=== PATIENT | male | born 1955 | race Caucasian/White ===

== ENCOUNTER 2023-03-29 07:59 | Observation (INO) ==
--- NOTE | 2023-02-27 10:47 | PAT Medication Instructions ---
Medication Instructions Date of Service February 27, 2023 Home Medications Medical Marijuana 1 dose PO DIRECTED PRN Pain linaclotide 145 mcg capsule (Linzess) 145 mcg PO QAM losartan 50 mg tablet 50 mg PO QAM multivitamin 1 tab PO DAILY naproxen sodium 220 mg tablet (Aleve) 220 mg PO BID PRN Pain polyethylene glycol 3350 17 gram/dose oral powder (Miralax) 17 g PO DAILY psyllium seed (sugar) oral powder (Metamucil (sugar) oral powder) 1 tbsp PO DAILY tamsulosin 0.4 mg capsule 0.4 mg PO HS ASK your surgeon for instructions naproxen sodium 220 mg tablet (Aleve) 220 mg PO BID PRN Pain DO NOT take the morning of surgery Medical Marijuana 1 dose PO DIRECTED PRN Pain linaclotide 145 mcg capsule (Linzess) 145 mcg PO QAM losartan 50 mg tablet 50 mg PO QAM multivitamin 1 tab PO DAILY polyethylene glycol 3350 17 gram/dose oral powder (Miralax) 17 g PO DAILY psyllium seed (sugar) oral powder (Metamucil (sugar) oral powder) 1 tbsp PO [place] Y Take evening before surgery Medical Marijuana 1 dose PO DIRECTED PRN Pain (if needed) polyethylene glycol 3350 17 gram/dose oral powder (Miralax) 17 g PO DAILY psyllium seed (sugar) oral powder (Metamucil (sugar) oral powder) 1 tbsp PO DAILY tamsulosin 0.4 mg capsule 0.4 mg PO HS OTHERWISE NOTHING TO EAT OR DRINK AFTER MIDNIGHT: Other Notes If you have any questions please call us at [phone] or [phone] or [phone] or [phone]
--- NOTE | 2023-03-02 12:05 | Anesthesiology Consultation ---
Date of Service March 02, 2023 Assessment & Plan (1) Encounter for pre-operative examination: - Case discussed in detail with Dr. Kruse who advised patient is acceptable to proceed with surgery without further evaluation or testing and can proceed as outpatient joint if requested by patient/surgeon in future. - Outpatient joint assessment: Patient is currently scheduled for inpatient pathway. If re-evaluated and patient/surgeon requests outpatient pathway, patient is acceptable candidate for outpatient joint program from anesthesia standpoint pending surgeon's office assessment of pt motivation/support/completion of same day joint program preop requirements. Chart Review Chart Review: Acceptable Risk for Surgery and Patient seen in Pre Admission Testing Teaching & Discussion Pre-Anesthesia Teaching/Discussion Notes: Instructed NPO after midnight before surgery, except medications with 15 cc of water. Medication instructions provided according to the PAT guidelines. History Surgery Operation Date: 03/29/23 10:05 Proposed Procedures p Left Total Knee Arthroplasty - Renny uAgustine MD Height/Weight Height: 6 ft Weight: 87.8 kg Allergies Allergy/AdvReac Type Severity Reaction Status Date / Time azithromycin Allergy Intermediate Rash Verified 02/24/23 11:52 [From Zithromax Z-Matheus] Medications Home Medications Medication Instructions Recorded Confirmed Last Taken Medical Marijuana 1 dose PO DIRECTED PRN Pain 02/24/23 02/24/23 Unknown linaclotide 145 mcg capsule 145 mcg PO QAM 02/24/23 02/24/23 Unknown (Linzess) losartan 50 mg tablet 50 mg PO QAM 02/24/23 02/24/23 Unknown multivitamin 1 tab PO DAILY 02/24/23 02/24/23 Unknown naproxen sodium 220 mg tablet 220 mg PO BID PRN Pain 02/24/23 02/24/23 Unknown (Aleve) polyethylene glycol 3350 17 17 g PO DAILY 02/24/23 02/24/23 Unknown gram/dose oral powder (Miralax) psyllium seed (sugar) oral powder 1 tbsp PO DAILY 02/24/23 02/24/23 Unknown (Metamucil (sugar) oral powder) tamsulosin 0.4 mg capsule 0.4 mg PO HS 02/24/23 02/24/23 Unknown Past Medical History Medical History (Updated 03/02/23 @ 12:04 by Kalpana Almonte PA-C) BPH (benign prostatic hyperplasia) Constipation chronic Hypertension controlled, stable per pt Patient denies h/o stroke, seizures, heart attack, heart failure, DM, blood clots/DVTs or blood transfusions. Exercise / Class Metabolic Activity II 4-5 Yardwork/Stairs/Walk up hill (shortness of breath with 1 FOS ongoing x several yrs; denies change or worsening; denies chest discomfort) Past Surgical History Surgical History H/O melanoma excision x several History of ankle surgery right History of appendectomy History of arthroscopy right ankle History of carpal tunnel release bilat History of cholecystectomy History of colonoscopy History of esophagogastroduodenoscopy (EGD) History of lumbar fusion History of tonsillectomy History of tooth extraction Hx of laparoscopy Past Anesthesia History No Hx of Anesthesia Complications and No Family Hx of Anesthesia Complications History of PONV No Hx of PONV and No Hx of Motion Sickness Social History Smoking Status: Former smoker Do You Dip or Chew Tobacco: No (hx 20 yrs ago) Smoking End Date: 50 yrs ago Hx Alcohol Use: No Hx Substance Use: Yes substance use type: marijuana Substance Use Type Other:: medical card > uses gummy prn-advised Review of Systems Chronic cough/clearing throat ongoing x 1 year, cough is nonproductive. Denies change or worsening. Patient denies chest pain, snoring, witnessed apneas, reflux, fever, chills, wheezing, or palpitations. Physical Exam Vital Signs Vitals BP 128/85 P 69 TEMP 97.3 SP02 100% on RA RESP 18 Physical Patient resting comfortably in chair in no acute distress, alert and oriented, responding appropriately throughout visit Full cervical extension range of motion without pain TMD 3.5 finger breadths Mallampati Score 2 Dentition: intact, denies chipped or loose teeth, caps/crowns, implants or bridges Lungs: normal respiratory effort. Good air movement, clear throughout to auscu ltation, no adventitious breath sounds Cardiac: regular rate and rhythm, no murmurs noted Carotid arteries: negative bruit bilat Lab Results Anesthesia Preop Results Results Anesthesia Widget: WBC 6.21 K/ul (4.8-10.8) 03/02/23 Hgb 13.0 g/dl (14.0-18.0) L 03/02/23 Hct 38.6 % (42.0-52.0) L 03/02/23 Plt 257 K/uL (130-400) 03/02/23 Na 137 mmol/L (136-145) 03/02/23 K 4.6 mmol/L (3.5-5.1) 03/02/23 Cl 107 mmol/L (98-107) 03/02/23 CO2 25 mmol/L (21-32) 03/02/23 BUN 21 mg/dl (6-23) 03/02/23 Creat 1.01 mg/dl (0.6-1.4) 03/02/23 Glucose Level 94 mg/dl (70-99(Fasting)) 03/02/23 PT 11.3 Seconds (9.0-12.0) 03/02/23 PTT 24.2 Seconds (21.0-31.0) 03/02/23 INR 1.0 (0.9-1.1) 03/02/23 HA1c 4.3 % (4.5-5.6) L 03/02/23 Urine Color Yellow 03/02/23 Urine Appearance Clear (Clear) 03/02/23 Urine pH 5.0 (4.5-7.5) 03/02/23 Urine Specific Wall 1.011 (1.000-1.030) 03/02/23 Urine Protein Negative (Negative) 03/02/23 Urine Glucose (UA) Negative (Negative) 03/02/23 Urine Ketones Negative (Negative) 03/02/23 Urine Blood Negative (Negative) 03/02/23 Urine Nitrite Negative (Negative) 03/02/23 Urine Bilirubin Negative (Negative) 03/02/23 Urine Urobilinogen Negative (Negative) 03/02/23 Urine Leukocyte Esterase Negative (Negative) 03/02/23 Blood Type O Positive 03/02/23 Antibody Screen NEGATIVE 03/02/23 Testing Electrocardiogram Date: 12/20/22 NSR, rate 66 bpm Left axis deviation RBBB Chest X-Ray Date: 12/19/22 Unremarkable cardiopulmonary systems Echocardiogram Date: 11/02/21 EF 60-65% All segments contract normally Mild mitral regurgitation Mild pulmonic regurgitation Stress Test Date: 12/06/21 Exercise MPHR 87% METS 10 No significant ischemia detected Fixed perfusion defect likely related to diaphragmatic attenuation in the inferior segment EF 50-55%
--- NOTE | 2023-03-28 09:58 | History & Physical Report ---
Date of Service March 28, 2023 Assessment & Plan (1) Primary osteoarthritis of left knee: Plan: Treatment options discussed with the patient. He has failed conservative measures and would like to proceed with surgery. Risks, benefits and alternatives to surgery including but not limited to infection, DVT, pain, stiffness, need for revision surgery, damage to blood vessels, damage to nerves, PE, , were discussed with the patient and they wish to proceed. Plan on left total knee arthroplasty scheduled for 03/29/23 at [facility] with Dr. Augustine. Plan on aspirin 81mg twice daily for 1 mo post op for DVT prophylaxis. Plan on outpatient physical therapy. All questions answered. Patient will follow up post op. History of Present Illness Chief Complaint: Left knee pain Primary Care Provider: Ricky Calderón MD 68yo male with PMHx significant for HTN, hx of melanoma, BPH who presents with ongoing left knee pain. Pain is interfering with his daily activity. He has failed conservative measures and would like to proceed with surgery. Patient denies headaches, sweats, fevers, chills, double vision, blurred vision, cough, sore throat, dysphagia, chest pain, sob, wheezing, n/v/d/c, numbness, tingling, fatigue, urinary symptoms, mood disorders. ROS positive for left knee pain and stiffness. Allergies Allergy/AdvReac Type Severity Reaction Status Date / Time azithromycin Allergy Intermediate Rash Verified 02/24/23 11:52 [From Zithromax Z-Matheus] Home Medications Medication Instructions Recorded Confirmed Type Medical Marijuana 1 dose PO DIRECTED PRN Pain 02/24/23 02/24/23 History linaclotide 145 mcg capsule 145 mcg PO QAM 02/24/23 02/24/23 History (Linzess) losartan 50 mg tablet 50 mg PO QAM 02/24/23 02/24/23 History multivitamin 1 tab PO DAILY 02/24/23 02/24/23 History naproxen sodium 220 mg tablet 220 mg PO BID PRN Pain 02/24/23 02/24/23 History (Aleve) polyethylene glycol 3350 17 17 g PO DAILY 02/24/23 02/24/23 History gram/dose oral powder (Miralax) psyllium seed (sugar) oral powder 1 tbsp PO DAILY 02/24/23 02/24/23 History (Metamucil (sugar) oral powder) tamsulosin 0.4 mg capsule 0.4 mg PO HS 02/24/23 02/24/23 History Past Med/Surg History Medical History (Updated 03/28/23 @ 09:55 by Chapito Castillo PA-C) BPH (benign prostatic hyperplasia) Constipation chronic Hypertension controlled, stable per pt Surgical History H/O melanoma excision x several History of ankle surgery right History of appendectomy History of arthroscopy right ankle History of carpal tunnel release bilat History of cholecystectomy History of colonoscopy History of esophagogastroduodenoscopy (EGD) History of lumbar fusion History of tonsillectomy History of tooth extraction Hx of laparoscopy Social History Smoking Status: Former smoker Smoking End Date: 50 yrs ago; Second Hand Exposure: No; Do You Dip or Chew Tobacco: No (hx 20 yrs ago); Tobacco Cessation Education Requested by Patient: No Hx Alcohol Use: No Hx Substance Use: Yes Substance Use Type Other:: medical card > uses gummy prn- advised Preferred Language: Dominican Communication Ability: Effective Electromechanisms Design Drafter Required: No Beliefs That Will Affect Care: None Current Living Situation: Spouse Other Information That Helps Us Care for You: No Feels Safe at Home: Yes Safety Concerns: Feels Safe At This Time Assistive Devices: None Review of Systems All systems reviewed & are unremarkable except as noted in HPI & below Physical Exam Constitutional: well developed and well nourished; no acute distress Eyes: PERRL, conjunctivae normal, anicteric sclerae ENMT: external ear and nose normal, oropharynx normal Neck: trachea midline, no thyromegaly Respiratory: normal respiratory effort, lungs clear to auscultation Cardiovascular: RRR, no murmur, no edema Musculoskeletal: Left knee: Varus alignment. Tenderness medial joint line. Mild effusion. Mild crepitation. Guarded Yfn's. Stable to valgus and varus stress. ROM 0-135 degrees Skin: no rashes, warm and dry Neurologic: patellar DTR's 2+ bilat, sensation intact Psychiatric: A+Ox3, euthymic affect Results & Data Diagnostic Findings X-rays of the left knee demonstrate that he has a varus knee. He has subluxation of the femur medially on the tibia. He has some medial bone loss in the medial compartment. There are subchondral cystic changes and subchondral sclerosis. He has some lateral patellar tilt, with patellofemoral osteophytes, with patellofemoral OA as well. Four-view x-rays left knee.
[~2023-03-29 07:59] MED LIST: ACETAMINOPHEN 500 MG TAB PO SCH; BUPIVACAINE 0.5 % 5 MG/1 ML PF 10ML VIAL ONE; CeleBREX 200 MG CAP PO SCH; FAMOTIDINE 20 MG TAB PO SCH; GABAPENTIN 300 MG CAP PO SCH; LR 500ML BOLUS, THEN 15ML/HR IV SCH; LR 60ML/HR IV SCH; METOCLOPRAMIDE HCL 10 MG TABLET PO SCH; ROPIVACAINE 0.5% 5 MG/ML 30 ML VIAL ONE; ROPIVACAINE 0.5% HCL/PF 150 MG, BUPIVACAINE 0.75% MPF 20 ML, EPINEPHrine 30MG/30ML (OR ... INSTIL SCH; TRANEXAMIC ACID 1,000 MG **IV Intra-op IV SCH; TRANEXAMIC ACID 1,000 MG **IV Pre-op IV SCH; ceFAZolin 2000MG 2,000 MG/15 ML SYR IV SCH; dexAMETHasone 4 MG TAB PO SCH
[2023-03-29] MEDS ORDERED: DEXAMETHASONE SOD INJ 4 MG/ML VIAL ONE (08:10)
[2023-03-29] MEDS ORDERED: fentaNYL citrate PF 100 MCG/2 ML VIAL ONE ×2 (08:10→11:47)
[2023-03-29] MEDS ORDERED: PROPOFOL IV EMULSION 10 MG/ML 20 ML VIAL IV ONE (08:10)
[2023-03-29] MEDS ORDERED: ONDANSETRON INJ 2 MG/ML 2 ML VIAL ONE (08:10)
[2023-03-29] MEDS ORDERED: LIDOCAINE 2% 2 ML VIAL/AMP(20MG/ML) INFIL ONE (08:10)
[2023-03-29] MEDS ORDERED: MIDAZOLAM HCL 1 MG/ML 2ML VIAL ONE (08:10)
[2023-03-29] MEDS ORDERED: ATROPINE SULFATE 0.1 MG/ML 10ML SYR IV PRN (09:25)
[2023-03-29] MEDS ORDERED: HYDROmorphone INJ 2 MG/ML SYR/VIAL IV PRN (09:25)
[2023-03-29] MEDS ORDERED: ONDANSETRON INJ 2 MG/ML 2 ML VIAL IV PRN ×2 (09:25→15:03)
[2023-03-29] MEDS ORDERED: ePHEDrine sulfate 50 MG/ML AMP IV PRN (09:25)
--- NOTE | 2023-03-29 09:57 | History & Physical Bridge Note ---
Date of Service March 29, 2023 History & Physical Bridge Note I have examined the patient, reviewed the History & Physical and in the interval since the performance of the History & Physical I have noted the following changes of clinical significance: no changes noted
[2023-03-29] MEDS ORDERED: ORTHO JOINT ANESTHETIC ONE (10:23)
[2023-03-29] MEDS ORDERED: HYDROmorphone INJ 2 MG/ML SYR/VIAL ONE (12:49)
--- NOTE | 2023-03-29 13:28 | Post Operative Brief Note ---
Immediate Post Op Note v1 Date of Surgery March 29, 2023 Pre & Post Diagnosis Operation Date: 03/29/23 10:05 Pre-Op Diagnosis: Left Knee Osteoarthritis Post-Op Diagnosis: Left Knee Osteoarthritis I identified the patient and participated in the time-out.: Yes Procedure Operation Date: 03/29/23 10:05 Actual Procedures p Left Total Knee Arthroplasty(Left), giovani and Acticoat superficial wound VAC application- Renny Augustine MD Surgeon Renny Augustine MD Travel Assistant Chapito SALEEM Estimated Blood Loss 5 Findings Consistent with Post-Op Diagnosis Specimens Bone cuts Drains Hemovac Drain (left knee) Anesthesia Type General Regional Complications none Disposition Disposition: Recovery Room Overlapping Procedure I was immediately available: during the entire case.
--- NOTE | 2023-03-29 13:39 | Operative Report ---
Post Operative Report Pre & Post Diagnosis Operation Date: 03/29/23 10:05 Pre-Op Diagnosis: Left Knee Osteoarthritis Post-Op Diagnosis: Left Knee Osteoarthritis I identified the patient and participated in the time-out.: Yes Procedure Operation Date: 03/29/23 10:05 Actual Procedures p Left Total Knee Arthroplasty(Left), giovani and Acticoat superficial wound VAC application- Renny Augustine MD Surgeon Renny Augustine MD Court Advocate Chapito SALEEM Estimated Blood Loss 5 Findings Consistent with Post-Op Diagnosis Specimens Bone cuts Drains 2 Hemovac Anesthesia Type General Regional Complications none Disposition Disposition: Recovery Room Indications 68-year-old male with chronic left knee pain failed conservative management. X- rays demonstrate osteoarthritis of the knee tricompartmental disease subluxation the femur medially on the tibia [id number] medial compartment varus knee. Description of Procedure The patient was taken to the operating room and anesthetized under spinal general and regional block anesthetic. Patient was placed supine on the the operating table. A pneumatic tourniquet was placed about the left upper thigh. The knee exam demonstrated mild pseudolaxity varus knee full range of motion and a large effusion. The involved leg was elevated exsanguinated with Esmarch bandage and the pneumatic tourniquet was raised to 300 millimeters mercury. A longitudinal incision was made across the anterior knee. Skin flaps were elevated. An incision was made into the medial retinaculum and extended up into the mid third of the quadriceps tendon and extended down to the tibial tubercle. Intra-articular findings demonstrated tricompartmental osteoarthritis with varus knee with [id number]-wrap medial compartment with anteromedial [id number]-gz-evas grade 4 changes with a chronic medial meniscus tear large radial tear. There were patellofemoral osteophytes and patellofemoral malalignment with lateral tr acking patella. There was chondromalacia of the femoral condyle lateral femoral condyle grade 3. There was marked inflamed hypertrophic synovitis in the suprapatellar pouch extending into the superior aspect of the gutters medially and laterally. I first performed and electrocautery synovectomy removing the chronically appearing inflamed synovial tissue in the suprapatellar pouch and in the medial and lateral gutters. The knee was further exposed by excising cruciate ligaments and menisci. The infrapatellar fat pad was resected. The fat pad over the anterior femur at the upper aspect of the articular surface was resected for placement of the component in that area. A subperiosteal peel lateral release was performed around the patella. The [employer] journey 2.0 posterior stabilized total knee arthroplasty system was utilized for the procedure. The custom femoral cutting guide was pinned in position. The distal femoral cut was made. It was noted the bone quality was extremely hard. The size 7, 5 in 1 cutting block was placed. The anterior posterior and chamfer cuts were made. The knee was extended and a free hand cut technique was performed to the patella. The patella width was measured and the width was reproduced using a 38 symmetrical patella component. Cut was made with an oscillating saw and the bone was equally as hard on the patella. 3 drill holes are made for the patella component pegs. The tibia was then subluxed. The external tibial alignment guide adjusted for posterior slope and was aligned with the long axis of the tibia and was pinned in position and the proximal tibial cut was made with the oscillating saw. The cut revealed large central intraosseous ganglion cysts in the tibia which were curetted out. Flexion and extension gaps were balanced. A minor medial posterior medial release was required. The size 7 tibial trial was externally rotated in line with the tibial tubercle and pinned in position. The punch for the stem was used. The femoral trial was inserted and centered the notch cutting devices were used and the collet was placed. Tibial trials were used for the insert. The size 11 trial gave balanced ligaments through full range of motion. Patella tracking was assessed with range of motion. The patella tracked with continued lateral patellar tilt and slight lift off so a lateral release was performed and the synovium intact and this corrected the patella tracking to central.. The trials were removed. The Orthomix anesthetic cocktail was injected per protocol. The cut bone surfaces and soft tissue were copiously irrigated with pulsatile lavage saline solution. The final components were cemented with Refobacin cement. The final components were Trejo [employer] Nephew journey 2.0 size 7 left posterior stabilized femoral component, size 7 left tibial component, 11 mm left posterior stabilized tibial polyethylene component 38 mm symmetrical patella polyethylene component. After the cement cured, the Betadine soak was used for 3 minutes. The knee was then copiously irrigated with pulsatile lavage saline solution. 2 drains were brought out laterally connected to Hemovac. The quadriceps tendon and medial retinaculum were closed with interrupted [id number] #1 Vicryl sutures. The knee was taken through full range of motion and repair was secure. Knee range of motion was 0 through 130 degrees. The subcutaneous tissues were closed with 2-0 Vicryl sutures. The skin was closed with afia. A giovani and Acticoat superficial wound VAC was applied. The tourniquet was let down and the patient had good capillary refill to the extremity. The patient tolerated the procedure well. My physician program assistant Arya SALEEM participated as molding line assistant and was integral part in all aspects of the procedure including prepping, draping, leg positioning, soft tissue retraction, instrument management and assisted in the closure , giovani and Acticoat superficial wound VAC application and will participate in postoperative care the patient. I attest to the content of the Intraoperative Record and any orders documented therein. Any exceptions are noted below.
--- NOTE | 2023-03-29 14:48 | Anesthesiology Progress Note ---
Date of Service March 29, 2023 Anesthesia Post Procedure Vital Signs Vital Signs: Temp Pulse Pulse Resp BP Pulse Ox O2 Del Method 03/29/23 13:30 87 12 116/63 97 Nasal Cannula 03/29/23 14:30 87 12 116/63 97 Nasal Cannula 03/29/23 14:20 92 H 12 122/66 97 Nasal Cannula 03/29/23 14:10 36.5 C 80 15 107/63 93 Nasal Cannula 03/29/23 14:00 81 12 103/60 95 Oxymask 03/29/23 13:50 80 13 98/61 L 97 Oxymask 03/29/23 13:40 74 12 90/48 L 97 Oxymask 03/29/23 13:33 36.3 C L 79 16 92/51 L 97 Oxymask 03/29/23 10:20 56 L 16 103/61 100 Oxymask 03/29/23 10:04 60 16 104/69 100 Oxymask 03/29/23 08:20 36.6 C 63 18 129/78 100 Room Air O2 Flow Rate 03/29/23 13:30 2 03/29/23 14:30 2 03/29/23 14:20 2 03/29/23 14:10 2 03/29/23 14:00 4 03/29/23 13:50 10 03/29/23 13:40 10 03/29/23 13:33 10 03/29/23 10:20 5 03/29/23 10:04 5 03/29/23 08:20 Transfer of Care Handoff Completed per policy Notes Mental Status: alert / awake / arousable Patient Amnestic to Procedure: Yes Nausea / Vomiting: adequately controlled Pain: adequately controlled Airway Patency, RR, SpO2: stable & adequate BP & HR: stable & adequate Hydration State: stable & adequate Anesthetic Complications: no major complications apparent and Pt Satisfied with anesthetic care
[2023-03-29] MEDS ORDERED: MAGNESIUM HYDROXIDE SUSP 30 ML UDC PO PRN (15:03)
[2023-03-29] MEDS ORDERED: bisacodyL 10 MG SUPP PR PRN (15:03)
[2023-03-29] MEDS ORDERED: NALOXONE HCL 0.4 MG/1 ML VIAL/CARP IV PRN (15:03)
[2023-03-29] MEDS ORDERED: SODIUM CHLORIDE 0.9% 1,000 ML IV SCH (15:03)
[2023-03-29] MEDS ORDERED: METOCLOPRAMIDE HCL INJ 5 MG/ML 2 ML VIAL IV PRN (15:03)
--- NOTE | 2023-03-29 15:35 | Hospitalist Consultation ---
Date of Consultation March 29, 2023 Assessment & Plan (1) Status post left knee replacement: VTE/pain management per primary orthopedic team (2) Hypertension: Given earlier BP recommend holding losartan until POD#2 (3) BPH (benign prostatic hyperplasia): Continue tamsulosin 0.4mg HS (4) Constipation: Continue Linzess 125mcg PO daily, give today's dose now Plan Thank you for the consult. We will continue to follow along with you. No discharge medication changes from a medical perspective anticipated at this time. History of Present Illness Reason for Consultation: Postop Management DOS 03/29 Attending Physician: Renny Augustine MD History of Present Illness Josiah Davila is a 68 year old male POD#0 left total knee arthroplasty. Doing well post surgery. No acute concerns or question from the patient. Hypertension controlled well as outpatient and appropriately held his losartan this morning. Allergies Allergy/AdvReac Type Severity Reaction Status Date / Time azithromycin Allergy Intermediate Rash Verified 03/29/23 08:25 [From Zithromax Z-Matheus] Home Medications Medication Instructions Recorded Confirmed Type Medical Marijuana 1 dose PO DIRECTED PRN Pain 02/24/23 03/29/23 History linaclotide 145 mcg capsule 145 mcg PO QAM 02/24/23 03/29/23 History (Linzess) losartan 50 mg tablet 50 mg PO QAM 02/24/23 03/29/23 History multivitamin 1 tab PO DAILY 02/24/23 03/29/23 History naproxen sodium 220 mg tablet 220 mg PO BID PRN Pain 02/24/23 03/29/23 History (Aleve) polyethylene glycol 3350 17 17 g PO DAILY 02/24/23 03/29/23 History gram/dose oral powder (Miralax) psyllium seed (sugar) oral powder 1 tbsp PO DAILY 02/24/23 03/29/23 History (Metamucil (sugar) oral powder) tamsulosin 0.4 mg capsule 0.4 mg PO HS 02/24/23 03/29/23 History Patient History Medical History (Updated 03/29/23 @ 15:32 by Josiah Acharya MD) Constipation chronic Hypertension controlled, stable per pt BPH (benign prostatic hyperplasia) Surgical History (Updated 03/29/23 @ 15:32 by Josiah Acharya MD) History of esophagogastroduodenoscopy (EGD) History of colonoscopy Hx of laparoscopy History of lumbar fusion History of carpal tunnel release bilat History of cholecystectomy History of appendectomy History of arthroscopy right ankle History of ankle surgery right H/O melanoma excision x several History of tooth extraction History of tonsillectomy Social History Smoking Status: Former smoker Smoking End Date: 50 yrs ago; Second Hand Exposure: No; Do You Dip or Chew Tobacco: No (hx 20 yrs ago); Tobacco Cessation Education Requested by Patient: No Hx Alcohol Use: No Hx Substance Use: Yes Substance Use Type Other:: medical card > uses gummy prn- advised Preferred Language: Hong Konger Communication Ability: Effective 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 Beliefs That Will Affect Care: None Current Living Situation: Spouse Other Information That Helps Us Care for You: No Feels Safe at Home: Yes Safety Concerns: Feels Safe At This Time Assistive Devices: None Review of Systems Review of Systems: All systems reviewed & are unremarkable except as noted in HPI & below Physical Exam Constitutional: WD/WN, vitals as above Respiratory: normal respiratory effort, lungs clear to auscultation Cardiovascular: RRR, no murmur, no edema Gastrointestinal (Abdomen): normal bowel sounds, soft, nontender, no hepatosplenomegaly Skin: no rashes, warm and dry Neurologic: moves all extremities (distal to operation site ankle plantar/dorsiflexion intact) and awake; not confused Psychiatric: A+Ox3, euthymic affect Results & Data Results & Data Vital Signs (Past 12 Hours) Vital Signs Temp Pulse Pulse Resp BP Pulse Ox O2 Del Method 03/29/23 13:30 87 12 116/63 97 Nasal Cannula 03/29/23 14:30 87 12 116/63 97 Nasal Cannula 03/29/23 14:20 92 H 12 122/66 97 Nasal Cannula 03/29/23 14:10 36.5 C 80 15 107/63 93 Nasal Cannula 03/29/23 14:00 81 12 103/60 95 Oxymask 03/29/23 13:50 80 13 98/61 L 97 Oxymask 03/29/23 13:40 74 12 90/48 L 97 Oxymask 03/29/23 13:33 36.3 C L 79 16 92/51 L 97 Oxymask 03/29/23 10:20 56 L 16 103/61 100 Oxymask 03/29/23 10:04 60 16 104/69 100 Oxymask 03/29/23 08:20 36.6 C 63 18 129/78 100 Room Air O2 Flow Rate 03/29/23 13:30 2 03/29/23 14:30 2 03/29/23 14:20 2 03/29/23 14:10 2 03/29/23 14:00 4 03/29/23 13:50 10 03/29/23 13:40 10 03/29/23 13:33 10 03/29/23 10:20 5 03/29/23 10:04 5 03/29/23 08:20 PG Care Time/CCT Total # of Minutes Spent Total Time Spent with Patient: Total time spent is greater than 50% in coordination of care (as documented) at patient's floor/unit and/or counseling patient: Coding Level of Care Code 01945 IN/OBS CONSULT LVL 3,45M Diagnoses Status post left knee replacement Z96.652 Hypertension I10 BPH (benign prostatic hyperplasia) N40.0 Constipation K59.00
[2023-03-29] MEDS ORDERED: LINACLOTIDE 145 MCG CAPSULE PO STA (15:44)
[2023-03-29] MEDS: ACETAMINOPHEN 500 MG TAB PO SCH ×2 (15:48→20:02)
[2023-03-29] MEDS: oxyCODONE HCL IR 5 MG TAB (IMMEDIATE RELEASE) PO PRN ×2 (15:51→20:03)
--- NOTE | 2023-03-29 16:26 | XRay Report ---
XR knee LT 1 or 2V routine CLINICAL HISTORY: Postoperative evaluation. COMPARISON: None FINDINGS: Alignment of the total left knee arthroplasty is anatomic. There is no periprosthetic frac ture or unexpected radiopaque foreign body. There are skin afia and surgical drains. IMPRESSION: Expected findings following total left knee arthroplasty. ACT 112: Negative or not required by law. Electronically signed by: Andres Antoine M.D. 03/29/2023 4:24 PM
[2023-03-29] MEDS: ceFAZolin 2000MG 2,000 MG/15 ML SYR IV SCH (20:00)
[2023-03-29] MEDS: TAMSULOSIN HCL 0.4 MG CAP PO SCH (20:02)
[2023-03-29] MEDS: CeleBREX 200 MG CAP PO SCH (20:03)
[2023-03-29] MEDS: ASPIRIN 81 MG ECTAB PO SCH (20:03)
[2023-03-29] MEDS: DOCUSATE SODIUM 100 MG CAP PO SCH (20:03)
[2023-03-30] MEDS: oxyCODONE HCL IR 5 MG TAB (IMMEDIATE RELEASE) PO PRN ×6 (00:16→20:59)
[2023-03-30] MEDS: ceFAZolin 2000MG 2,000 MG/15 ML SYR IV SCH (03:45)
[2023-03-30] MEDS: ACETAMINOPHEN 500 MG TAB PO SCH ×3 (05:05→20:38)
--- NOTE | 2023-03-30 07:42 | Orthopedic Progress Note ---
Date of Service March 30, 2023 Assessment & Plan (1) Status post left knee replacement: Plan: Postop day #1 left total knee arthroplasty -PT/OT -Pain management as written -A.m. labs are pending -Aspirin 81 mg twice daily, SCDs, teds -Discharge planning: Plan on discharge home with outpatient therapy. Patient has had 250 cc of Hemovac output overnight. He may have more than typical bleeding secondary to synovectomy. Continue drain for another day. Likely discharge home tomorrow. Admission and Anticipated Discharge Date Admission Date: March 29, 2023 Subjective Patient is postop day 1 left total knee. He is doing well this morning. Minimal pain. No other complaints. Denies chest pain, shortness of breath, nausea/vomiting/diarrhea, headaches or dizziness. Review of Systems Review of Systems: All systems reviewed & are unremarkable except as noted in Subjective Physical Exam Physical Exam: Left knee: Dressing is clean, intact. Hemovac on suction. Toes are mobile with good dorsiflexion. No calf tenderness. Able to do a straight leg raise. Constitutional: WD/WN, vitals as above Results & Data Vital Signs (Past 12 Hours) Vital Signs Temp Pulse Resp BP Pulse Ox O2 Del Method 03/30/23 04:10 36.6 C 60 18 101/64 98 Room Air 03/29/23 23:29 36.8 C 92 H 18 128/76 96 Room Air 03/29/23 19:42 36.6 C 89 18 145/77 H 97 Room Air Diagnostic Findings XR knee LT 1 or 2V routine CLINICAL HISTORY: Postoperative evaluation. COMPARISON: None FINDINGS: Alignment of the total left knee arthroplasty is anatomic. There is no periprosthetic fracture or unexpected radiopaque foreign body. There are skin afia and surgical drains. IMPRESSION: Expected findings following total left knee arthroplasty.
[2023-03-30 07:58] LABS: Hemoglobin 9.9 g/dl (14.0-18.0); Mean Corpuscular Hemoglobin 27.3 pg (25.0-34.0); Mean Corpuscular Hgb Conc 34.1 g/dL (32.0-36.0); Mean Corpuscular Volume 80.1 fL (80.0-100.0); Mean Platelet Volume 11.1 fL (9.4-12.4); Platelet Count 260 K/uL (130-400); RDW Coefficient of Variation 15.9 % (11.5-14.5); RDW Standard Deviation 46.3 fL (36.4-46.3); Red Blood Count 3.62 M/uL (4.70-6.10); White Blood Count 14.89 K/ul (4.8-10.8)
[2023-03-30] MEDS: MULTIVITAMIN TAB PO SCH (08:10)
[2023-03-30] MEDS: LINACLOTIDE 145 MCG CAPSULE PO SCH (08:11)
[2023-03-30] MEDS: CeleBREX 200 MG CAP PO SCH ×2 (08:11→20:38)
[2023-03-30] MEDS: PSYLLIUM or GUAR GUM FIBER POWDER PACKET PO SCH (08:11)
[2023-03-30] MEDS: ASPIRIN 81 MG ECTAB PO SCH ×2 (08:11→20:39)
[2023-03-30] MEDS: DOCUSATE SODIUM 100 MG CAP PO SCH ×2 (08:11→20:39)
[2023-03-30] MEDS: POLYETHYLENE (MIRALAX) 17 GM PACK PO SCH (08:11)
[2023-03-30 08:25] LABS: BUN Creatinine Ratio 19.8 (10-20); Calcium 8.8 mg/dl (8.6-10.3); Creatinine Clr Calc Pharmacy 75.2 ml/min; Est GFR (African American) 84.3 ml/min; Est GFR (Non-African American) 72.8 ml/min; Potassium 4.7 mmol/L (3.5-5.1)
[2023-03-30] MEDS ORDERED: LOSARTAN POTASSIUM 50 MG TAB PO SCH (09:00)
[2023-03-30] MEDS ORDERED: NON-FORMULARY MEDICATION (Multivitamin Tablet) PO SCH (09:00)
--- NOTE | 2023-03-30 09:05 | Hospitalist Progress Note ---
Date of Service March 30, 2023 Assessment & Plan (1) Status post left knee replacement: Plan: POD# 1 s/p Left Total Knee Arthroplasty(Left), giovani and Acticoat superficial wound VAC application- Renny Augustine MD EBL 5 cc Hemovac output 250cc overnight WBC elevation, suspect likely 2nd to steroids w/ surgery. Afebrile Hgg 13--> 9.9. Acute blood loss anemia from surgery w/ hemovac output (possible more bleeding 2nd to synovectomy per primary) as well as dilutional aspect from IVF. No CP/SOB, lightheaded/dizziness Pain management/bowel regimen per primary service PT/OT consults DVT proph: ASA 81mg BID, SCDs, severo lane Added daily famotidine for GI proph while on celebrex for pain/aspirin for DVT prophylaxis. No increased reflux reported at present. Consider sending at dc Dispo per primary service -- anticipating dc tomorrow pending drain output (2) Hypertension: Plan: Losartan held day of surgery, resuming for POD #2 given lows overnight to prevent hypotension BP 147/84 at present (3) BPH (benign prostatic hyperplasia): Plan: Continue tamsulosin 0.4mg HS (4) Constipation: Plan: Continue Linzess 125mcg PO daily, first dose last evening Per primary care note, patient on lactulose BID, miralax/benefiber on alternating days as well Discussed w/ patient and will add lactulose 20mg BID Has been 2 days since last BM. Monitor Miralax ordered daily by primary as well. good bowel sounds on exam Plan Thank you for allowing hospitalist service to participate in the care of Mr Davila. Hospitalist service will sign off at this time as planned dc tomorrow if hemovac output decreased. Please call with any questions/concerns. Admission and Anticipated Discharge Date Admission Date: March 29, 2023 Supervising Physician Co-Signing Physician Notes The patient was not seen by me. The chart was reviewed. Case discussed with STIVEN Dodge. Agree with assessment and plan Subjective Eval this morning, doing well. Pain increasing slightly since nerve block wearing off. Orthopedics wanting to monitor drainage, patient reports likely wanting to make sure he can do steps at discharge. Issues w/ constipation at baseline, reports linzess most important. Takes lactulose BID and miralax/benefiber if needed alternating. Will add lactulose BID and miralax prn. No fever/chills, chest pain, shortness of breath. Discussed medicine to sign off and ortho will reach out if any issues as patient planning for discharge tomorrow. Questions/concerns addressed at this time. Physical Exam Constitutional: WD/WN, vitals as above HEENT: head atraumatic, normocephalic, trachea midline, mmm Respiratory: normal respiratory effort, lungs clear to auscultation Cardiovascular: RRR, no murmur, no edema Gastrointestinal (Abdomen): normal bowel sounds, soft, nontender, no hepatosplenomegaly Skin: no rashes, warm and dry Neurologic: moves all extremities (distal to operation site ankle plantar/dorsiflexion intact) and awake; not confused L calf slightly tender but compartments soft, pulses palpable hemovac with bloody drainage Psychiatric: A+Ox3, euthymic affect Results & Data Results & Data Vital Signs (Past 12 Hours) Vital Signs Temp Pulse Resp BP Pulse Ox O2 Del Method 03/30/23 08:13 36.5 C 78 18 147/84 H 97 Room Air 03/30/23 04:10 36.6 C 60 18 101/64 98 Room Air 03/29/23 23:29 36.8 C 92 H 18 128/76 96 Room Air Laboratory Results 03/30/23 Range/Units 07:04 WBC 14.89 H (4.8-10.8) K/ul RBC 3.62 L (4.70-6.10) M/uL Hgb 9.9 L (14.0-18.0) g/dl Hct 29.0 L (42.0-52.0) % MCV 80.1 (80.0-100.0) fL MCH 27.3 (25.0-34.0) pg MCHC 34.1 (32.0-36.0) g/dL RDW Std Deviation 46.3 (36.4-46.3) fL RDW Coeff of Daylin 15.9 H (11.5-14.5) % Plt Count 260 (130-400) K/uL MPV 11.1 (9.4-12.4) fL Sodium 138 (136-145) mmol/L Potassium 4.7 (3.5-5.1) mmol/L Chloride 107 (98-107) mmol/L Carbon Dioxide 27 (21-32) mmol/L Anion Gap 4 (3-11) BUN 21 (6-23) mg/dl Creatinine 1.06 (0.6-1.4) mg/dl Est Cr Clr Drug Dosing 75.2 ml/min Est GFR ( Amer) 84.3 ml/min Est GFR (Non-Af Amer) 72.8 ml/min BUN/Creatinine Ratio 19.8 (10-20) Glucose 102 H (70-99(Fasting)) mg/dl Calcium 8.8 (8.6-10.3) mg/dl Diagnostic Findings Knee X-Ray 03/29/23 13:33 XR knee LT 1 or 2V routine CLINICAL HISTORY: Postoperative evaluation. COMPARISON: None FINDINGS: Alignment of the total left knee arthroplasty is anatomic. There is no periprosthetic fracture or unexpected radiopaque foreign body. There are skin afia and surgical drains. IMPRESSION: Expected findings following total left knee arthroplasty. ACT 112: Negative or not required by law. Electronically signed by: Andres Antoine M.D. 03/29/2023 4:24 PM PG Care Time/CCT Total # of Minutes Spent Total Time Spent with Patient: Total time spent is greater than 50% in coordination of care (as documented) at patient's floor/unit and/or counseling patient: Coding Level of Care Code 49008 SUB INP/OBS CARE 2/35MIN Diagnoses Status post left knee replacement Z96.652 Hypertension I10 BPH (benign prostatic hyperplasia) N40.0 Constipation K59.00
[2023-03-30] MEDS: LACTULOSE SYRUP 20 GM/30 ML UDC PO SCH ×2 (11:07→20:38)
[2023-03-30] MEDS: FAMOTIDINE 20 MG TAB PO SCH (11:07)
[2023-03-30] MEDS ORDERED: oxyCODONE HCL IR 5 MG TAB (IMMEDIATE RELEASE) PO STA (13:31)
[2023-03-30] MEDS: HYDROmorphone INJ 0.5 MG/0.5 ML SYR IV PRN ×3 (18:00→22:36)
[2023-03-30] MEDS: TAMSULOSIN HCL 0.4 MG CAP PO SCH (20:38)
[2023-03-31] MEDS: oxyCODONE HCL IR 5 MG TAB (IMMEDIATE RELEASE) PO PRN ×2 (01:17→06:00)
[2023-03-31] MEDS: HYDROmorphone INJ 0.5 MG/0.5 ML SYR IV PRN ×2 (03:29→11:33)
[2023-03-31] MEDS: ACETAMINOPHEN 500 MG TAB PO SCH ×2 (05:57→14:04)
[2023-03-31] MEDS ORDERED: KETOROLAC TROMETHAMINE 15 MG/ML VIAL IV PRN (07:33)
[2023-03-31] MEDS ORDERED: KETOROLAC TROMETHAMINE 15 MG/ML VIAL IV ONE (07:33)
--- NOTE | 2023-03-31 07:37 | Orthopedic Progress Note ---
Date of Service March 31, 2023 Assessment & Plan (1) Status post left knee replacement: Plan: Postop day #2 left total knee arthroplasty -PT/OT -Pain management as written. Add Toradol. -Aspirin 81 mg twice daily, SCDs, teds -Discharge planning: Plan on discharge home with outpatient therapy when pain is better controlled. We will see how he does through the morning. If pain better controlled plan on discharge home this afternoon. Admission and Anticipated Discharge Date Admission Date: March 29, 2023 Subjective Patient is postop day 2. His pain is currently not controlled and is having quite a bit discomfort. No other complaints. Denies chest pain, shortness of breath, nausea/vomiting/diarrhea, headaches or dizziness. Review of Systems Review of Systems: All systems reviewed & are unremarkable except as noted in Subjective Physical Exam Physical Exam: Left knee: Dressing is clean, intact. Hemovac on suction. Toes are mobile with good dorsiflexion. No calf tenderness. Distally neurovascular status and sensation is grossly intact. Results & Data Vital Signs (Past 12 Hours) Vital Signs Temp Pulse Resp BP Pulse Ox O2 Del Method 03/30/23 21:28 36.6 C 64 18 118/77 99 Room Air Laboratory Results Lab Results 03/30/23 Range/Units 07:04 WBC 14.89 H (4.8-10.8) K/ul RBC 3.62 L (4.70-6.10) M/uL Hgb 9.9 L (14.0-18.0) g/dl Hct 29.0 L (42.0-52.0) % MCV 80.1 (80.0-100.0) fL MCH 27.3 (25.0-34.0) pg MCHC 34.1 (32.0-36.0) g/dL RDW Std Deviation 46.3 (36.4-46.3) fL RDW Coeff of Daylin 15.9 H (11.5-14.5) % Plt Count 260 (130-400) K/uL MPV 11.1 (9.4-12.4) fL Sodium 138 (136-145) mmol/L Potassium 4.7 (3.5-5.1) mmol/L Chloride 107 (98-107) mmol/L Carbon Dioxide 27 (21-32) mmol/L Anion Gap 4 (3-11) BUN 21 (6-23) mg/dl Creatinine 1.06 (0.6-1.4) mg/dl Est Cr Clr Drug Dosing 75.2 ml/min Est GFR ( Amer) 84.3 ml/min Est GFR (Non-Af Amer) 72.8 ml/min BUN/Creatinine Ratio 19.8 (10-20) Glucose 102 H (70-99(Fasting)) mg/dl Calcium 8.8 (8.6-10.3) mg/dl
[2023-03-31] MEDS ORDERED: LOSARTAN POTASSIUM 50 MG TAB PO SCH (09:00)
[2023-03-31] MEDS ORDERED: HYDROmorphone HCL 2 MG TAB PO PRN (09:01)
[2023-03-31 09:21] LABS: Hematocrit (blood only) 28.6 % (42.0-52.0); Hemoglobin 9.7 g/dl (14.0-18.0); Mean Corpuscular Hemoglobin 27.3 pg (25.0-34.0); Mean Corpuscular Hgb Conc 33.9 g/dL (32.0-36.0); Mean Corpuscular Volume 80.6 fL (80.0-100.0); Mean Platelet Volume 10.4 fL (9.4-12.4); Platelet Count 218 K/uL (130-400); RDW Coefficient of Variation 16.1 % (11.5-14.5); RDW Standard Deviation 46.7 fL (36.4-46.3); Red Blood Count 3.55 M/uL (4.70-6.10); White Blood Count 9.44 K/ul (4.8-10.8)
[2023-03-31] MEDS: MULTIVITAMIN TAB PO SCH (09:29)
[2023-03-31] MEDS: PSYLLIUM or GUAR GUM FIBER POWDER PACKET PO SCH (09:29)
[2023-03-31] MEDS: DOCUSATE SODIUM 100 MG CAP PO SCH (09:29)
[2023-03-31] MEDS: ASPIRIN 81 MG ECTAB PO SCH (09:29)
[2023-03-31] MEDS: LINACLOTIDE 145 MCG CAPSULE PO SCH (09:29)
[2023-03-31] MEDS: FAMOTIDINE 20 MG TAB PO SCH (09:30)
[2023-03-31] MEDS: LACTULOSE SYRUP 20 GM/30 ML UDC PO SCH (09:30)
[2023-03-31] MEDS: POLYETHYLENE (MIRALAX) 17 GM PACK PO SCH (09:30)
[2023-03-31 09:38] LABS: Creatinine Clr Calc Pharmacy 72.5 ml/min; Est GFR (African American) 80.6 ml/min; Est GFR (Non-African American) 69.6 ml/min
[2023-03-31] MEDS: CeleBREX 200 MG CAP PO SCH (10:38)
--- NOTE | 2023-03-31 13:21 | Communication Note ---
Date of Service: March 31, 2023 Signed off yesterday, but placed labs to ensure Hgb drop slowed given hemovac output recorded. Labs stable, WBC wnl, afebrile. Renal function stable. Patient reported increased pain to primary this morning, nursing reported patient going home on dilaudid PO for pain control so I did stop back to see patient and encourage aggressive bowel regimen to prevent constipation while on opiates. He notes his #1 priority daily is bowel movements and plans to stop the pain medications once better controlled. He plans on dc today. Please call with any questions/concerns.
--- NOTE | 2023-03-31 16:30 | Discharge Summary ---
Date of Service March 31, 2023 Admission HPI Per Admitting Provider 68yo male with PMHx significant for HTN, hx of melanoma, BPH who presents with ongoing left knee pain. Pain is interfering with his daily activity. He has failed conservative measures and would like to proceed with surgery. Patient denies headaches, sweats, fevers, chills, double vision, blurred vision, cough, sore throat, dysphagia, chest pain, sob, wheezing, n/v/d/c, numbness, tingling, fatigue, urinary symptoms, mood disorders. ROS positive for left knee pain and stiffness. Admission Exam Per Admitting Provider Constitutional: well developed and well nourished; no acute distress Eyes: PERRL, conjunctivae normal, anicteric sclerae ENMT: external ear and nose normal, oropharynx normal Neck: trachea midline, no thyromegaly Respiratory: normal respiratory effort, lungs clear to auscultation Cardiovascular: RRR, no murmur, no edema Musculoskeletal: Left knee: Varus alignment. Tenderness medial joint line. Mild effusion. Mild crepitation. Guarded Yfn's. Stable to valgus and varus stress. ROM 0-135 degrees Skin: no rashes, warm and dry Neurologic: patellar DTR's 2+ bilat, sensation intact Psychiatric: A+Ox3, euthymic affect Principal Diagnosis Left knee osteoarthritis Discharge Exam Left knee: Dressing is clean, intact. Hemovac on suction. Toes are mobile with good dorsiflexion. No calf tenderness. Distally neurovascular status and sensation is grossly intact. Discharge Data Allergies Allergy/AdvReac Type Severity Reaction Status Date / Time azithromycin Allergy Intermediate Rash Verified 03/29/23 08:25 [From Zithromax Z-Matheus] Consultations 03/24/23 07:20 Consult Hospitalist Routine Procedures Performed Operation Date: 03/29/23 10:05 Actual Procedures p Left Total Knee Arthroplasty(Left) - Renny Augustine MD Ordered Studies 03/29/23 05:00 US - OR guided needle placemen Routine Hospital Course (1) Status post left knee replacement: Postop day #2 left total knee arthroplasty -PT/OT -Pain management as written. Add Toradol. -Aspirin 81 mg twice daily, SCDs, teds -Discharge planning: Plan on discharge home with outpatient therapy when pain is better controlled. We will see how he does through the morning. If pain better controlled plan on discharge home this afternoon. Postop day #1 left total knee arthroplasty -PT/OT -Pain management as written -A.m. labs are pending -Aspirin 81 mg twice daily, SCDs, teds -Discharge planning: Plan on discharge home with outpatient therapy. Patient has had 250 cc of Hemovac output overnight. He may have more than typical bleeding secondary to synovectomy. Continue drain for another day. Likely discharge home tomorrow. Total Time Total Time Spent Total Time Spent (In Minutes): 20 Discharge Plan Discharge Items Patient Disposition: Home - Self-Care Reason For Visit: Left Knee Osteoarthritis Discharge Diagnosis: Left knee osteoarthritis Activity: Per Instructions section Non-emergency contact: Surgeon Call non-emergency contact if: you have any medication questions, your pain is not controlled, your pain is concerning for you, you have a fever, your temperature is above 101, your wound has increased redness and your wound has increased drainage Follow-up/Referrals: Ricky Calderón MD [Primary Care Provider] - Diet: Regular Addtl Attending Provider Instructions: ACTIVITY RECOMMENDATIONS: SELF CARE INSTRUCTIONS AFTER TOTAL KNEE REPLACEMENT A. You may need to continue a physical therapy program after discharge from the hospital. There are several options available to you. Your doctor will assist you in selecting the best one for you. 1. An out-patient facility 2 to 3 times a week for therapy or home therapy. 2. Continue working on all exercises taught to you in the hospital. Your goals should be to increase bending of your knee to 90 degrees and beyond and to fully straighten your knee. B. You may progress at your own pace from walking with a walker or crutches to a cane; then to no assistive devices. C. Make walking a part of your daily routine. Be up as much as comfortable with rest periods throughout the day. Rest with leg elevation is very important. Use the ice wrap frequently for the first 3-4 weeks. D. There are no restrictions on activities. You may ride in a car, shop, participate in leather goods sales representative and all social activities. E. Wear the long elastic stockings (DU hose) 20 hours a day for 2 weeks after surgery. They can be removed several times a day for laundering and for a bath. F. You may shower, no tub baths until cleared by your doctor. SPECIAL CARE INSTRUCTIONS: VERY IMPORTANT TO READ AND REVIEW A. There are a few signs you need to watch for after you are home. Call [facility] if you notice any of the followin. Increased severe knee pain. Some pain is expected especially when you exercise. 2. Increased swelling in your leg or knee; pain or swelling of the calf muscle in either lower leg. 3. Any fluid drainage from the incision. 4. Shortness of breath or chest pain. B. Please call [facility] at if you have any concerns or questions about your operation or recovery. The doctor or his nurse will return your call promptly. C. You must take antibiotics before dental work, bladder, bowel or other surgery. Your doctor will provide you with a permanent care to carry describing this precaution. IMPORTANT: * REMEMBER TO TAKE ASPIRIN, 81 MG, TWICE DAILY FOR 4 WEEKS UNLESS OTHERWISE DIRECTED. THIS IS YOUR BLOOD THINNER. * HIGH RISK PATIENTS MAY BE PRESCRIBED A STRONGER BLOOD THINNER. THIS WILL BE PROVIDED AT DISCHARGE. * CALL IF INCREASED PAIN, REDNESS, DRAINAGE OR FEVER GREATER THAT 101. * WEAR DU HOSE 20 HOURS PER DAY FOR 2 WEEKS. There is a large suction dressing covering your incision. This will help pull any excess drainage from the wound and allow your incision to heal properly. You may shower with this if you can keep the unit outside of the shower. If any bleeding or leakage is noted please call your doctor's office. This will remain on your incision for 7 days and then should be removed. This can be done yourself or by the home nursing staff if applicable. The entire unit is disposable once removed. Once removed, keep incision clean and dry. If redness or drainage is noted, please call your surgeon. IF INCISION IS LEAKING THROUGH DRESSING, CALL THE OFFICE . FOLLOW UP VISIT: If appointment is not already scheduled: Please call [facility] to make a follow-up appointment for 2 weeks after your surgery at . Stand-Alone Forms: My [facility] [employer], Pain - Opioid Pain Management Medications and DC Order Prescriptions: New acetaminophen [Tylenol Extra Strength] 500 mg Tablet 1,000 mg PO Q8 Qty: 60 0RF aspirin 81 mg Tablet,Delayed Release (Dr/Ec) 81 mg PO BID Qty: 60 0RF celecoxib [Celebrex] 200 mg Capsule 200 mg PO BID Qty: 60 0RF hydromorphone [Dilaudid] 2 mg Tablet 2 mg PO Q6H PRN (Reason: pain) Qty: 12 0RF Rx Instructions: Initial therapy, Dr. Augustine supervising Continued multivitamin Tablet 1 tab PO DAILY losartan 50 mg Tablet 50 mg PO QAM tamsulosin 0.4 mg Capsule 0.4 mg PO HS Metamucil (sugar) Powder 1 tbsp PO DAILY Linzess 145 mcg Capsule 145 mcg PO QAM polyethylene glycol 3350 [Miralax] 17 gram/dose Powder 17 g PO DAILY Medical Marijuana 1 dose PO DIRECTED PRN (Reason: Pain) Discontinued naproxen sodium [Aleve] 220 mg Tablet 220 mg PO BID PRN (Reason: Pain) Discharge Orders: Discharge Order (Routine); Ordered 03/31/23 Ordered By: Chapito Castillo Admission Data Admit Date/Time: 03/29/23 13:33 Attending Provider: Renny Augustine Admit Provider: Renny Augustine Primary Care Provider: Ricky Calderón Other Providers: Josiah Carreon Robert R. Other Interventions: Discharge Summary Assessment (RN) Last Done: 03/31/23 13:54
== END 2023-03-31 14:22 | disposition home or self-care (01) ==
LOC: ASU 07:59 → 3W 07:59
DX: Z87.891 Personal history of nicotine dependence; I10 Essential (primary) hypertension; M17.12 Unilateral primary osteoarthritis, left knee; K59.00 Constipation, unspecified; Z88.1 Allergy status to other antibiotic agents; M65.9 Synovitis and tenosynovitis, unspecified; N40.0 Benign prostatic hyperplasia without lower urinary tract symptoms; Z79.899 Other long term (current) drug therapy; Z98.1 Arthrodesis status

== ENCOUNTER 2024-12-04 09:54 | Inpatient (IN) ==
--- NOTE | 2024-09-27 12:20 | PAT Medication Instructions ---
Medication Instructions Date of Service September 27, 2024 Home Medications Medication Instructions Recorded celecoxib 200 mg capsule (Celebrex) 200 mg PO BID #60 caps 03/30/23 hydromorphone 2 mg tablet 2 mg PO Q6H PRN pain #12 tabs 03/31/23 (Dilaudid) Medical Marijuana 1 dose PO HS Pain linaclotide 145 mcg capsule (Linzess) 145 mcg PO QAM losartan 50 mg tablet 50 mg PO QAM multivitamin 1 tab PO DAILY psyllium seed (sugar) oral powder (Metamucil (sugar) oral powder) 1 tbsp PO DAILY tamsulosin 0.4 mg capsule 0.4 mg PO HS celecoxib 200 mg capsule (Celebrex) 200 mg PO BID hydromorphone 2 mg tablet (Dilaudid) 2 mg PO Q6H PRN pain acetaminophen 500 mg tablet (Tylenol Extra Strength) 1,000 mg PO Q8 PRN Pain turmeric 400 mg capsule 400 mg PO 2XWK ASK your surgeon for instructions celecoxib 200 mg capsule (Celebrex) 200 mg PO BID STOP taking 2 weeks before surgery (or as soon as possible if surgery is within 2 weeks) turmeric 400 mg capsule 400 mg PO 2XWK DO NOT take the morning of surgery linaclotide 145 mcg capsule (Linzess) 145 mcg PO QAM losartan 50 mg tablet 50 mg PO QAM multivitamin 1 tab PO DAILY psyllium seed (sugar) oral powder (Metamucil (sugar) oral powder) 1 tbsp PO DAILY Take morning of surgery With a small sip of water, OTHERWISE NOTHING TO EAT OR DRINK AFTER MIDNIGHT: hydromorphone 2 mg tablet (Dilaudid) 2 mg PO Q6H PRN pain (if needed) acetaminophen 500 mg tablet (Tylenol Extra Strength) 1,000 mg PO Q8 PRN Pain (if needed) Take evening before surgery Medical Marijuana 1 dose PO HS Pain tamsulosin 0.4 mg capsule 0.4 mg PO HS hydromorphone 2 mg tablet (Dilaudid) 2 mg PO Q6H PRN pain (if needed) acetaminophen 500 mg tablet (Tylenol Extra Strength) 1,000 mg PO Q8 PRN Pain (if needed) Other Notes If you have any questions please call us at [phone] or [phone] or [phone] or [phone]
--- NOTE | 2024-10-09 13:26 | Anesthesiology Consultation ---
Date of Service October 09, 2024 Assessment & Plan (1) Encounter for pre-operative examination: - new bifascicular block, patient will need cardiology clearance per discussion with Dr. Zhao. Patient indicated wanting [place] [facility] if needed. Surgeon's office made aware. Patient made aware, he [facility]. I advised that's fine he just needs to notify our team if he changes his mind and wants [facility]. He verbalized understanding, denied additional questions or concers. Chart Review Chart Review: Pending: Refer to Additional Notes / Consult section and Patient seen in Pre Admission Testing Teaching & Discussion Pre-Anesthesia Teaching/Discussion Notes: Instructed NPO after midnight before surgery, except medications with 15 cc of water. Medication instructions provided according to the PAT guidelines. History Surgery Operation Date: 10/23/24 07:15 Proposed Procedures p Left Knee Open Polyetheylene Exchange, Synovectomy - Renny Augustine MD Height/Weight Height: 6 ft Weight: 87.5 kg Allergies Allergy/AdvReac Type Severity Reaction Status Date / Time bee venom protein (honey bee) Allergy Intermediate Difficulty Verified 09/26/24 09:01 Breathing Medications Home Medications Medication Instructions Recorded Confirmed Last Taken Medical Marijuana 1 dose PO HS Pain 02/24/23 09/26/24 03/27/23 22:00 linaclotide 145 mcg capsule 145 mcg PO QAM 02/24/23 09/26/24 03/28/23 (Linzess) losartan 50 mg tablet 50 mg PO QAM 02/24/23 09/26/24 03/28/23 08:00 multivitamin 1 tab PO DAILY 02/24/23 09/26/24 03/27/23 08:00 psyllium seed (sugar) oral powder 1 tbsp PO DAILY 02/24/23 09/26/24 03/28/23 08:00 (Metamucil (sugar) oral powder) tamsulosin 0.4 mg capsule 0.4 mg PO HS 02/24/23 09/26/24 03/28/23 21:00 celecoxib 200 mg capsule (Celebrex) 200 mg PO BID #60 caps 03/30/23 09/26/24 Unknown hydromorphone 2 mg tablet 2 mg PO Q6H PRN pain #12 tabs 03/31/23 09/26/24 Unknown (Dilaudid) acetaminophen 500 mg tablet 1,000 mg PO Q8 PRN Pain 09/26/24 09/26/24 Unknown (Tylenol Extra Strength) turmeric 400 mg capsule 400 mg PO 2XWK 09/26/24 09/26/24 Unknown Past Medical History Medical History [facility] BPH (benign prostatic hyperplasia) Constipation chronic without change or worsening GERD (gastroesophageal reflux disease) [facility] History of COVID-19 (~2019) denies hospitalization, residual altered sense of smell History of hypertension controlled, stable per pt Lesion of parotid gland [facility] monitoring Lumbar degenerative disc disease Osteoarthritis Pulmonary nodule [facility] monitoring Patient denies h/o stroke, seizures, heart attack, heart failure, DM, blood clots/DVTs or blood transfusions. Exercise / Class Metabolic Activity II 4-5 Yardwork/Stairs/Walk up hill (denies chest discomfort or shortness of breath with one flight of stairs) Past Surgical History Surgical History H/O melanoma excision x several History of ankle surgery right with hardware History of appendectomy History of arthroscopy right ankle History of carpal tunnel release bilat History of cholecystectomy History of colonoscopy History of esophagogastroduodenoscopy (EGD) History of lumbar fusion History of tonsillectomy History of tooth extraction History of total left knee replacement Hx of laparoscopy exploratory Past Anesthesia History No Hx of Anesthesia Complications and No Family Hx of Anesthesia Complications History of PONV No Hx of PONV and No Hx of Motion Sickness Social History Smoking Status: Former smoker Do You Dip or Chew Tobacco: No Smoking End Date: over 30 yrs ago Hx Alcohol Use: No Hx Substance Use: Yes substance use type: marijuana Substance Use Type Other:: medical card at Review of Systems Patient denies chest pain, shortness of breath, dyspnea on exertion, snoring, witnessed apneas, reflux, fever, chills, cough, wheezing, or palpitations. Physical Exam Vital Signs Vitals BP 127/83 P 67 TEMP 98.4 SP02 97% on RA RESP 17 Physical Patient resting comfortably in chair in no acute distress, alert and oriented, responding appropriately throughout visit Full cervical extension range of motion without pain TMD 3.5 finger breadths Mallampati Score 2 Dentition: intact, denies chipped or loose teeth, caps/crowns, implants or bridges Lungs: normal respiratory effort. Good air movement, clear throughout to auscultation, no adventitious breath sounds Cardiac: regular rate and rhythm, no murmurs noted Carotid arteries: negative bruit bilat Lab Results Anesthesia Preop Results Results Anesthesia Widget: PT 10.9 Seconds (9.0-12.0) 10/09/24 PTT 26 Seconds (21-31) 10/09/24 INR 1.0 (0.9-1.1) 10/09/24 Urine Color Yellow 10/09/24 Urine Appearance Clear (Clear) 10/09/24 Urine pH 6.0 (4.5-7.5) 10/09/24 Urine Specific [place] 1.021 (1.000-1.030) 10/09/24 Urine Protein Negative (Negative) 10/09/24 Urine Glucose (UA) Negative (Negative) 10/09/24 Urine Ketones Negative (Negative) 10/09/24 Urine Blood Negative (Negative) 10/09/24 Urine Nitrite Negative (Negative) 10/09/24 Urine Bilirubin Negative (Negative) 10/09/24 Urine Urobilinogen Negative (Negative) 10/09/24 Urine Leukocyte Esterase Negative (Negative) 10/09/24 Blood Type O Positive 10/09/24 Antibody Screen NEGATIVE 10/09/24 Testing Laboratory Results 09/12/24 WBC: 7.1 H/H: 12/37 PLATELETS: 311,000 SODIUM: 142 POTASSIUM: 4.7 CHLORIDE: 107 CO2: 25 BUN: 21 CREATININE: 1 Alk phos: 130 SGPT: 12 SGOT: 22 A1c: 4.4% Electrocardiogram Date: 10/09/24 NSR, rate 64 bpm RBBB Left anterior fascicular block bifascicular block Echocardiogram Date: 11/02/21 EF 60-65% Mild mitral regurgitation Borderline prolapse of AML Mild pulmonic regurgitation PASP 16 mmHg Stress Test Date: 12/06/21 MPHR 87% METS 10.4 Fixed perfusion defect likely related to diaphragmatic attenuation in the inferior segment No significant ischemia detected EF 50-55%
--- NOTE | 2024-12-03 17:58 | History & Physical Report ---
Date of Service December 03, 2024 Assessment & Plan (1) Synovitis and tenosynovitis of knee: Plan: Left knee with chronic synovitis after knee replacement surgery with no evidence of radiographic loosening and no evidence of infection. Does have some ligamentous laxity that may have developed and could be contributing to some chronic synovitis potentially. The chronic synovitis causes stiffness and is affecting daily activities although he does not have substantial pain related with it. Recommendation is to proceed with an open electrocautery synovectomy and use aqua mantis to cauterize bleeders as necessary and do a polyethylene exchange to a thicker component to help with laxity and more constrained polyethylene to improve stability of the left knee replacement (2) Painful total knee replacement, left: Encounter type: subsequent encounter Qualified Code(s): T84.84XD - Pain due to internal orthopedic prosthetic devices, implants and grafts, subsequent encounter; Z96.652 - Presence of left artificial knee joint History of Present Illness Chief Complaint: Chronic left knee swelling packing function status post left knee replacement March 2023. Primary Care Provider: NO PCP 69-year-old male who had index left total knee replacement for osteoarthritis March 29, 2023. Patient's had problems with chronic synovitis throughout his postoperative course which has not been relieved with all conservative measures. Cultures are negative antigen panel is negative Synovasure alpha defense and is negative total nucleated cell count 221 with 22.8% neutrophils and 77.2% mononuclear cells. Patient denies headaches, sweats, fevers, chills, double vision, blurred vision, cough, sore throat, dysphagia, chest pain, sob, wheezing, n/v/d/c, numbness, tingling, fatigue, urinary symptoms, mood disorders. ROS positive for some chronic phlegm, arthritis involving low back and skin cancer. Allergies Allergy/AdvReac Type Severity Reaction Status Date / Time bee venom protein (honey bee) Allergy Intermediate Difficulty Verified 12/02/24 15:09 Breathing Home Medications Medication Instructions Recorded Confirmed Type Medical Marijuana 1 dose PO HS Pain 02/24/23 12/02/24 History linaclotide 145 mcg capsule 145 mcg PO QAM 02/24/23 12/02/24 History (Linzess) losartan 50 mg tablet 50 mg PO QAM 02/24/23 12/02/24 History multivitamin 1 tab PO DAILY 02/24/23 12/02/24 History psyllium seed (sugar) oral powder 1 tbsp PO DAILY 02/24/23 12/02/24 History (Metamucil (sugar) oral powder) tamsulosin 0.4 mg capsule 0.4 mg PO HS 02/24/23 12/02/24 History celecoxib 200 mg capsule (Celebrex) 200 mg PO BID #60 caps 03/30/23 12/02/24 Rx hydromorphone 2 mg tablet 2 mg PO Q6H PRN pain #12 tabs 03/31/23 12/02/24 Rx (Dilaudid) acetaminophen 500 mg tablet 1,000 mg PO Q8 PRN Pain 09/26/24 12/02/24 History (Tylenol Extra Strength) turmeric 400 mg capsule 400 mg PO 2XWK 09/26/24 12/02/24 History Past Med/Surg History Problem List (Updated 12/03/24 @ 17:56 by Renny Augustine MD) Painful total knee replacement, left Synovitis and tenosynovitis of knee Primary osteoarthritis of left knee Encounter for pre-operative examination Constipation chronic Hypertension controlled, stable per pt BPH (benign prostatic hyperplasia) Medical History [facility]ule [facility] Anemia monitored by [facility] Lumbar degenerative disc disease Lesion of parotid gland [facility] GERD (gastroesophageal reflux disease) per [facility] records History of COVID-19 (~2019) denies hospitalization, residual altered sense of smell Osteoarthritis Constipation chronic without change or worsening History of hypertension controlled, stable per pt BPH (benign prostatic hyperplasia) Surgical History Hx of cardiac cath later 10/2024, abn EKG, [facility], no stents-"only 20-30%, dr is not conc erned at this time"; f/u dr. michael, cardio History of total left knee replacement History of esophagogastroduodenoscopy (EGD) History of colonoscopy Hx of laparoscopy exploratory History of lumbar fusion History of carpal tunnel release bilat History of cholecystectomy History of appendectomy History of arthroscopy right ankle History of ankle surgery right with hardware H/O melanoma excision x several History of tooth extraction History of tonsillectomy Social History Smoking Status: Former smoker Smoking End Date: 30 years ago; Second Hand Exposure: No; Do You Dip or Chew Tobacco: No; Tobacco Cessation Education Requested by Patient: No Hx Alcohol Use: No Hx Substance Use: Yes (medical card) Last Used Substance Other:: "lowest dose of THC, only eats 1/2 gummy at bedtime" Substance Use Type Other:: gummies Preferred Language: Latvian Communication Ability: Effective Public Transit Trolley Driver Required: No Beliefs That Will Affect Care: None Current Living Situation: Spouse Other Information That Helps Us Care for You: No Feels Safe at Home: Yes Safety Concerns: Feels Safe At This Time Assistive Devices: Glasses and Hearing Aid - Bilateral Review of Systems All systems reviewed & are unremarkable except as noted in HPI & below Physical Exam Constitutional: WD/WN, vitals as above Respiratory: normal respiratory effort; no respiratory distress Cardiovascular: Rate/Rhythm: regular rate and regular rhythm Musculoskeletal: Left knee with neutral alignment and a very large knee joint effusion with maint ained range of motion 0 to 130 degrees. With varus valgus stressing there is relatively mild medial and lateral laxity of the knee. No extensor lag. There is pelvic obliquity with the right leg apparently being shorter than the left. Distal circulation sensorimotor exam intact. Skin: no rashes, warm and dry Neurologic: normal touch/pain/proprioception Psychiatric: A+Ox3, euthymic affect Results & Data Diagnostic Findings X-rays left knee demonstrates a [employer] journey total knee replacement with some chronic metaphyseal remodeling changes underneath the plate of the tibial component but no lucencies that would suggest loosening of any of the components. The patella is centrally aligned without tilt.
[~2024-12-04 09:54] MED LIST changes: -ACETAMINOPHEN 500 MG TAB PO SCH; -BUPIVACAINE 0.5 % 5 MG/1 ML PF 10ML VIAL ONE; -CeleBREX 200 MG CAP PO SCH; -FAMOTIDINE 20 MG TAB PO SCH; -GABAPENTIN 300 MG CAP PO SCH; -LR 500ML BOLUS, THEN 15ML/HR IV SCH; -LR 60ML/HR IV SCH; -METOCLOPRAMIDE HCL 10 MG TABLET PO SCH; -ROPIVACAINE 0.5% HCL/PF 150 MG, BUPIVACAINE 0.75% MPF 20 ML, EPINEPHrine 30MG/30ML (OR ... INSTIL SCH; -TRANEXAMIC ACID 1,000 MG **IV Intra-op IV SCH; -TRANEXAMIC ACID 1,000 MG **IV Pre-op IV SCH; -ceFAZolin 2000MG 2,000 MG/15 ML SYR IV SCH; -dexAMETHasone 4 MG TAB PO SCH
[2024-12-04] MEDS ORDERED: BUPIVACAINE 0.5 % 5 MG/1 ML PF 10ML VIAL ONE (10:00)
[2024-12-04] MEDS: LR 60ML/HR IV SCH (10:46)
[2024-12-04] MEDS: LR 500ML BOLUS, THEN 15ML/HR IV SCH (10:46)
--- NOTE | 2024-12-04 10:52 | History & Physical Bridge Note ---
Date of Service December 04, 2024 History & Physical Bridge Note I have examined the patient, reviewed the History & Physical and in the interval since the performance of the History & Physical I have noted the following changes of clinical significance: no changes noted
[2024-12-04] MEDS: ACETAMINOPHEN 500 MG TAB PO SCH ×2 (10:53→22:29)
[2024-12-04] MEDS: CeleBREX 200 MG CAP PO SCH (10:54)
[2024-12-04] MEDS: METOCLOPRAMIDE HCL 10 MG TABLET PO SCH (10:54)
[2024-12-04] MEDS: GABAPENTIN 300 MG CAP PO SCH (10:54)
[2024-12-04] MEDS: FAMOTIDINE 20 MG TAB PO SCH (10:54)
[2024-12-04] MEDS: VANCOMYCIN HCL 1,250 MG in SODIUM CHLORIDE 0.9% 250 ML IV SCH (10:57)
[2024-12-04] MEDS ORDERED: PROPOFOL IV EMULSION 10 MG/ML 20 ML VIAL IV ONE (11:58)
[2024-12-04] MEDS ORDERED: LIDOCAINE 2% 2 ML VIAL/AMP(20MG/ML) INFIL ONE (11:58)
[2024-12-04] MEDS ORDERED: MIDAZOLAM HCL 1 MG/ML 2ML VIAL ONE (11:59)
[2024-12-04] MEDS ORDERED: ONDANSETRON INJ 2 MG/ML 2 ML VIAL IV PRN ×2 (12:30→18:00)
[2024-12-04] MEDS ORDERED: HYDROmorphone INJ 2 MG/ML SYR/VIAL IV PRN (12:30)
[2024-12-04] MEDS ORDERED: ATROPINE SULFATE 0.1 MG/ML 10ML SYR IV PRN (12:30)
[2024-12-04] MEDS: TRANEXAMIC ACID 1,000 MG **IV Pre-op IV SCH (13:26)
[2024-12-04] MEDS ORDERED: ePHEDrine sulfate 50 MG/5 ML SYR ONE (13:50)
[2024-12-04] MEDS ORDERED: GLYCOPYRROLATE 0.2 MG/ML VIAL ONE (13:55)
[2024-12-04] MEDS ORDERED: KETAMINE HCL 10MG/ML SYR ONE (13:55)
[2024-12-04] MEDS ORDERED: ONDANSETRON INJ 2 MG/ML 2 ML VIAL ONE (14:01)
[2024-12-04] MEDS ORDERED: DEXAMETHASONE SOD INJ 4 MG/ML VIAL ONE (14:01)
[2024-12-04] MEDS ORDERED: HYDROmorphone INJ 1 MG/ML SYRINGE ONE (15:07)
[2024-12-04] MEDS: ROPIV 0.5% 246mg, Ketorolac 30mg, EPINEPHrine 0.5mg in NSS INFIL SCH (15:19)
--- NOTE | 2024-12-04 16:21 | Operative Report ---
Post Operative Report Pre & Post Diagnosis Operation Date: 12/04/24 12:45 Pre-Op Diagnosis: Left Knee: Chronic aseptic synovitis, Painful Left Total Knee Replacement, mid flexion laxity. Post-Op Diagnosis: Left Knee: Chronic aseptic synovitis, painful left total knee replacement, mid flexion laxity, polyethylene wear tip of posterior stabilized post, no evidence of loosening any components I identified the patient and participated in the time-out.: Yes Procedure Operation Date: 12/04/24 12:45 Actual Procedures p Left Knee revision of tibial polyethylene component to a constrained tibial polyethylene and electrocautery synovectomy and debridement bone spurs and cement and pie crusting iliotibial band. Renny Augustine MD Surgeon Renny Augustine MD Shoe Caser Malachi SALEEM Estimated Blood Loss 10 Findings Consistent with Post-Op Diagnosis Specimens Synovium and tibial polyethylene Drains 2 Hemovac Anesthesia Type MAC Spinal Regional Complications none Disposition Disposition: Recovery Room Indications See procedure note Description of Procedure 69-year-old male who had a left total knee replacement March 2023. He developed chronic synovitis over time and failed all conservative measures including anti-inflammatory medication. There is no radiographic loosening. Did have a lateral release at the time of the index procedure. There is no evidence of any avascular necrosis. Synovasure testing negative for antigens, negative for alpha defense and, white cell count normal, differential consistent with chronic inflammation, all cultures negative, serum inflammatory testing negative. Patient had regional block and spinal anesthetic. Patient placed supine on the operating table with a pneumatic tourniquet placed by his left upper thigh and his left lower extremity was prepped and draped in sterile fashion. ChloraPrep was used. Knee exam demonstrated he had full extension and flexion to 135 d egrees and knee was completely stable in flexion to varus valgus stress and completely stable in extension to varus valgus stress but he did have some mid flexion laxity with varus valgus stressing in both directions. Patient had very large chronic knee effusion. Leg was elevated exsanguinated with Esmarch bandage and pneumatic tourniquet was raised to 325 mmHg. Patient's old scar was used for the incision anteriorly across the knee. This was incised sharply and then very thin subcutaneous tissues were dissected off of the extensor mechanism which was completely intact. Incision was made through the medial retinaculum extending up to the mid third of the quadriceps tendon and down to the medial tibial tubercle and a large knee effusion was evacuated. Fluid was clear no signs of inflammatory arthritis. Patient had chronic thickened synovitis least 2 cm thick scarred synovial chronic inflammation in the suprapatellar pouch extending into the gutters more thickening and swelling medially than laterally. The femoral component tibial component and patellar component were all stable with no loosening. The tibial polyethylene was intact and the only finding that identified was that the tip of the post had some wear on the very top in the normal lip was worn down flatter by few millimeters. The knee was irrigated followed by an electrocautery synovectomy removing the thickened synovial fluid of the gutters suprapatellar pouch. The scarred infrapatellar fat pad was resected sharply and retractors were placed and the tibial polyethylene was removed uneventfully. There was no clear evidence of any backside wear or surface wear on the implant. This gave further access to the lateral gutter where more synovium could be removed and in the posterior knee capsular area was used to use a pituitary rongeur to remove some inflamed synovial tissue behind the condyles and in the notch area. I did notice that there was some mildly prominent cement under the lip of the notch area but this did not come in contact with the polyethylene. These slightly prominent areas of cement were removed with a curved osteotome. There was a small osteophyte on the lateral femoral condyle that was resected with a rongeur and there was a small osteophyte or heterotopic bone medial patella that was resected with a rongeur. The knee was copiously irrigated. Trial reduction with a constrained component upsizing to a 12 and 13 revealed that the 13 gave better stability and patient still had full extension. Patient still had flexion about 130 degrees. All of mid flexion laxity was resolved. I did note that the IT band was slightly tight so I did some pie crusting to relax it along its anterior edge. The trial was removed and anesthetic cocktail was injected into the posterior capsular tissues and medial and lateral capsule and Quad tendon proximally. After further irrigation the final implant was placed which was the 7/8 ,13 mm constrained BCS poly tibial component of the journey 2.0 knee replacement posterior stabilized knee replacement. A 3-minute Betadine soak was performed followed by further irrigation with pulsatile lavage saline solution. 2 Hemovac drains were placed brought out laterally. The quadriceps tendon and medial retinaculum were repaired with interrupted #2 FiberWire sutures in [id number] fashion placing the sutures around the distal quad repair and medial retinacular area and the apex of the quad split proximally. Additional #2 FiberWire was placed at the level of the tibial polyethylene. A 0 strata fix running locking suture was used from the apex of the quad split down to the inferior pole of the patella and below that level interrupted #1 Vicryl sutures were utilized. The repair was secure through full range of motion which was 0 through 130 degrees. The knee was completely stable through full range of motion. The subcutaneous tissues were closed with 2-0 Vicryl sutures skin was closed with surgical afia and a Silverlon dressing was applied and a compressive Son wrap from the foot to the thigh. When the tourniquet was let down patient normal capillary refill to extremity and tolerated procedure well. Malachi SALEEM is my certified surgical first assistant and he assisted me throughout the procedure was integral part in the entire procedure and assisted in soft tissue retraction the closure and postoperative care. I attest to the content of the Intraoperative Record and any orders documented therein. Any exceptions are noted below.
--- NOTE | 2024-12-04 17:12 | XRay Report ---
Clinical History: Postoperative examination 2 views of the left knee are submitted for review. Comparison is made to the prior examination dated 03/29/2023 Findings: There is new fragmentation of the inferior patella. There is a left knee total arthroplasty in expected position. There is no definite sign of infection or loosening. No other osseous abnormality is identified. There are surgical skin afia anteriorly Impression: 1. Left knee replacement 2. Age indeterminate fracture of the inferior patella ACT 112: Positive. There are findings on this exam that require communication between the performing entity and the patient following Patient Test Result Information Act ([place] ACT 112) guidelines. Electronically signed by Otilio Sprague 12-04-2024 5:12 PM
--- NOTE | 2024-12-04 17:14 | Anesthesiology Progress Note ---
Date of Service December 04, 2024 Anesthesia Post Procedure Vital Signs Vital Signs: Temp Pulse Pulse Resp BP Pulse Ox O2 Del Method 12/04/24 17:05 72 14 107/67 98 Oxymask 12/04/24 16:55 77 12 106/64 99 Oxymask 12/04/24 16:45 73 12 113/69 98 Oxymask 12/04/24 16:35 92 H 14 118/69 98 Oxymask 12/04/24 16:25 70 12 106/59 L 95 Oxymask 12/04/24 16:18 97.3 F L 82 17 118/59 L 97 Oxymask 12/04/24 10:28 97.7 F 65 20 121/83 98 Room Air O2 Flow Rate 12/04/24 17:05 4 12/04/24 16:55 4 12/04/24 16:45 6 12/04/24 16:35 8 12/04/24 16:25 8 12/04/24 16:18 8 12/04/24 10:28 Pain Intensity Left Knee: Pain Intensity: 5 Transfer of Care Handoff Completed per policy Notes Mental Status: alert / awake / arousable and participated in evaluation Patient Amnestic to Procedure: Yes Nausea / Vomiting: adequately controlled Pain: adequately controlled Airway Patency, RR, SpO2: stable & adequate BP & HR: stable & adequate Hydration State: stable & adequate Anesthetic Complications: no major complications apparent and Pt Satisfied with anesthetic care
[2024-12-04] MEDS ORDERED: CeleBREX 200 MG CAP PO PRN (18:00)
[2024-12-04] MEDS ORDERED: ALUMINUM/MAGNESIUM SUSP 30 ML UDC PO PRN (18:00)
[2024-12-04] MEDS ORDERED: NON-FORMULARY MEDICATION (Turmeric 400 mg Capsule) PO SCH (18:00)
[2024-12-04] MEDS ORDERED: MAGNESIUM HYDROXIDE SUSP 30 ML UDC PO PRN (18:00)
[2024-12-04] MEDS ORDERED: NALOXONE HCL 0.4 MG/1 ML VIAL/CARP IV PRN (18:00)
[2024-12-04] MEDS ORDERED: diphenhydrAMINE Capsule 25 MG CAP PO PRN (18:00)
[2024-12-04] MEDS ORDERED: METOCLOPRAMIDE HCL INJ 5 MG/ML 2 ML VIAL IV PRN (18:00)
[2024-12-04] MEDS: SODIUM CHLORIDE 0.9% 1,000 ML IV SCH (18:10)
[2024-12-04] MEDS: SENNA 8.6 MG TAB PO SCH (20:31)
[2024-12-04] MEDS: HYDROmorphone INJ 0.5 MG/0.5 ML SYR IV PRN (20:31)
[2024-12-04] MEDS: ASPIRIN 81 MG ECTAB PO SCH (20:31)
[2024-12-04] MEDS: DOCUSATE SODIUM 100 MG CAP PO SCH (20:31)
[2024-12-04] MEDS: TAMSULOSIN HCL 0.4 MG CAP PO SCH (20:31)
[2024-12-04] MEDS ORDERED: NON-FORMULARY MEDICATION (Medical Marijuana 1 EA) PO SCH (21:00)
[2024-12-04] MEDS: TRANEXAMIC ACID / 0.7% NACL 1,000 MG/100 ML BAG IV SCH (22:29)
[2024-12-05 05:00] VITALS: PULSE 58; RESP 16
[2024-12-05] MEDS: KETOROLAC TROMETHAMINE 15 MG/ML VIAL IV PRN (07:50)
[2024-12-05] MEDS: LINACLOTIDE 145 MCG CAPSULE PO SCH (07:51)
[2024-12-05] MEDS: MULTIVITAMIN TAB PO SCH (07:51)
[2024-12-05] MEDS: dexAMETHasone 10 MG in SYRINGE 0 ML IV SCH (07:52)
[2024-12-05] MEDS: PSYLLIUM HUSK 4GM PACKET PO SCH (07:52)
[2024-12-05 08:10] VITALS: BP 114/73; TEMP 99.1; O2SAT 98
--- NOTE | 2024-12-05 08:18 | Orthopedic Progress Note ---
Date of Service December 05, 2024 Assessment & Plan (1) Synovitis and tenosynovitis of knee: Plan: Postop day 1 polyethylene exchange synovectomy. Expect some ongoing bleeding due to synovectomy which is typical. Recommend discharge home but maintained Hemovac drain and will have arrangements to have drain removed tomorrow. Patient lives in [place] possibly he could go to our [place] office and have provider remove it there for his convenience. 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 Does have some ligamentous laxity that may have developed and could be contributing to some chronic synovitis potentially. The chronic synovitis causes stiffness and is affecting daily activities although he does not have substantial pain related with it. Recommendation is to proceed with an open electrocautery synovectomy and use aqua mantis to cauterize bleeders as necessary and do a polyethylene exchange to a thicker component to help with laxity and more constrained polyethylene to improve stability of the left knee replacement (2) Painful total knee replacement, left: Admission and Anticipated Discharge Date Admission Date: December 04, 2024 Subjective Mild to moderate discomfort tolerable. Review of Systems Review of Systems: No chest pain shortness of breath or medical issues Physical Exam Musculoskeletal: Dressing dry and intact circulation normal Hemovac still draining blood. Results & Data Vital Signs (Past 12 Hours) Vital Signs Temp Pulse Resp BP BP Pulse Ox O2 Del Method 12/05/24 08:07 37.3 C 58 L 16 114/73 98 Room Air 12/05/24 04:59 36.4 C L 58 L 16 136/71 96 Room Air 12/05/24 00:03 36.4 C L 66 14 98/59 L 99 Room Air 12/04/24 20:30 36.4 C L 70 16 110/72 98 Room Air (2) Painful total knee replacement, left Encounter type: subsequent encounter Qualified Code(s): T84.84XD - Pain due to internal orthopedic prosthetic devices, implants and grafts, subsequent encounter; Z96.652 - Presence of left artificial knee joint
[2024-12-05 08:23] LABS: Hematocrit (blood only) 34.0 % (42.0-52.0); Hemoglobin 11.5 g/dl (14.0-18.0); Mean Corpuscular Hemoglobin 27.4 pg (25.0-34.0); Mean Corpuscular Volume 81.0 fL (80.0-100.0); Platelet Count 225 K/uL (130-400); RDW Standard Deviation 46.6 fL (36.4-46.3); Red Blood Count 4.20 M/uL (4.70-6.10); White Blood Count 13.28 K/ul (4.8-10.8)
[2024-12-05 08:49] LABS: Anion Gap 6.0 (3-11); Blood Urea Nitrogen 17.0 mg/dl (6-23); Calcium 8.8 mg/dl (8.6-10.3); Carbon Dioxide 26.0 mmol/L (21-32); Chloride 105.0 mmol/L (98-107); Creatinine Clr Calc Pharmacy 71.5 ml/min; Glucose 110.0 mg/dl (70-99(Fasting)); Potassium 4.3 mmol/L (3.5-5.1); Sodium 137.0 mmol/L (136-145)
--- NOTE | 2024-12-05 12:23 | Communication Note ---
Date of Service: December 05, 2024 The patient was seen before discharge. He is medically stable. Primary surgical service will be discharging the patient today, December 05. No need for formal medical consultation at this point.
== END 2024-12-05 11:50 | disposition home or self-care (01) | DRG 467 ==
LOC: ASU 09:54 → 3E 16:20